=== PATIENT | male | born 1945 | race Caucasian/White ===

== ENCOUNTER 2016-12-16 00:36 | Day surgery (SDC) | payer MEDICARE ==
[~2016-12-16] VITALS: Ht 175.3 cm; Wt 91.5 kg
[2016-12-16] VITALS (18 sets, daily range): BP systolic 93–130; BP diastolic 51–77; PULSE 58–78; RESP 12–20; O2SAT 95–98
[~2016-12-16 00:36] MED LIST: ALBU8.5H2 INHALATION; ASCO500C6 PO; CHOL10008 PO; CYAN1TAB42 PO; DABI150C PO; DILT180C83 PO; DOXA2TAB52 PO; FLUT12AE8 IH; LOSA1TAB69 PO; MELA1TAB9 PO; MONT10TA23 PO; MULT1CAP33 PO; OMEG-38 PO; TADA20TA PO; VITA400C19 PO
[2016-12-16] MEDS ORDERED: Ondansetron 2 mg/mL 2 mL Inj ONE (00:37)
[2016-12-16] MEDS ORDERED: Protamine Sulfate 10 mg/mL 5 mL Inj ONE ×2 (00:37→11:58)
[2016-12-16] MEDS ORDERED: Rocuronium 10 mg/mL 5 mL Inj ONE (00:37)
[2016-12-16] MEDS ORDERED: Phenylephrine/NS 100 mCg/mL 10 mL Syringe IVPUSH ONE (00:37)
[2016-12-16] MEDS ORDERED: MetoCLOpramide 5 mg/mL 2 mL Inj ONE (00:37)
[2016-12-16] MEDS ORDERED: Dexamethasone 4 mg/mL Inj ONE (00:37)
[2016-12-16] MEDS ORDERED: Ketamine 10 mg/mL 20 mL Inj ONE (00:37)
[2016-12-16] MEDS ORDERED: Propofol 10,000 mCg/mL 20 mL Inj ONE (00:37)
[2016-12-16] MEDS ORDERED: fentaNYL-PF 50 mCg/mL 2 mL Inj IVPUSH PRN ×2 (06:00→09:50)
[2016-12-16] MEDS ORDERED: Benzoc-Butamben-Tetraca Spray 20 Gm Spray TOPICAL ONE (06:00)
[2016-12-16] MEDS ORDERED: Heparin 1,000 Unit/mL 10 mL Inj ONE ×2 (07:41→07:57)
[2016-12-16] MEDS ORDERED: Heparin 10,000 Unit/1,000 mL NS Premix IV ONE (07:41)
[2016-12-16] MEDS ORDERED: Heparin 25,000 Unit/500 mL 0.45% NS Premix IV ONE (07:42)
[2016-12-16] MEDS ORDERED: 0.9% Sodium Chloride 5,000 ML ONE (07:43)
[2016-12-16] MEDS ORDERED: Heparin 1,000 Units/500 mL NS Premix IV ONE (07:48)
[2016-12-16 07:53] LABS: BASOPHILS % (AUTO) 0.3 % (0-3); EOSINOPHILS % (AUTO) 6.1 % (0-5); MONOCYTES % (AUTO) 12.8 % (4-12); Mean Corpuscular Hemoglobin 32.5 pg (27.0-35.0); Mean Corpuscular Volume 97.3 fL (81-100); Platelet Count 210 bil/L (150-400)
[2016-12-16 08:08] LABS: INR 1.03 ratio
--- NOTE | 2016-12-16 08:12 | NUR ---
Admitted today for an elective atrial ablation today by Dr Serrato. Admit Rhythm is Atrial fib - 60's. Patient is here with his , "Serafin" as support.
--- NOTE | 2016-12-16 08:55 | PCM.HPANE ---
Patient Data Surgeon Admitting Provider: Attending Provider:Chad Serrato MD Primary Care Physician:King Mueller MD Other Provider:Leonora Colungaingham Anesthesia Reason for Visit Paroxysmal Atrial Fibrillation Ht/WT & BMI Height (Feet): 5 Height (Inches): 9.00 Weight (Kilograms): 87.700 Body Mass Index 28.64 Allergies Coded Allergies: levofloxacin (Verified Allergy, Severe, Rash, 12/16/16) Beta-Adrenergic Agents (Verified Allergy, Unknown, 12/16/16) HX of Asthma Past Anesthesia History Anesthesia History: Denies:: Anesthesia Reactions Diabetes History Hx Diabetes?: No MRSA MRSA: No Medications Hypertension Medication: Yes Home Meds Incl Beta Viridiana: No Reported Medications Vitamin E (Dl,Tocopheryl Acet) (Vitamin E)400 Unit [id number] Unit PO 12/15/16 Cholecalciferol (Vitamin D3) (Vitamin D3)1,000 Unit Tab.chew1,000 Unit PO 12/15/16 Ascorbic Acid (Vitamin C)500 Mg Capsule.er500 Mg PO 12/15/16 Cyanocobalamin/Folic Acid (Vitamin T72-Iczyn Acid Tablet)1 Each Tablet1 Each PO 12/15/16 Albuterol HFA (Proair HFA)8.5 Gm Hfa.aer.ad2 Puffs INHALATION Q4H #1 INHALER 12/15/16 Dabigatran Etexilate Mesylate (Pradaxa)150 Mg Lerdjaz855 Mg PO BID 30 Days 12/15/16 Multivitamin (Multivitamins)1 Each Capsule1 Each PO 12/15/16 Melatonin 1 Mg TabletUnknown Dose PO 12/15/16 Montelukast 10 Mg Hdmrlq25 Mg PO HS Ref 0 12/15/16 Losartan/HCTZ 50-12.5 mg 1 Each Tablet1 Tablet PO DAILY Ref 0 12/15/16 Fluticasone Propionate (Flovent HFA 110 mcg)12 Gm Aer.w.adap1 Puff IH BID #12 GM Ref 0 12/15/16 [place]-3/Dha/Epa/Fish Oil (Fish Oil 1,000 mg Softgel)1 Each Capsule1 Each PO 12/15/16 Doxazosin (Cardura)2 Mg Tablet2 Mg PO BID Ref 0 12/15/16 Diltiazem ER 180 Mg Cap.er.06c342 Mg PO DAILY Ref 0 12/15/16 Tadalafil (Cialis)20 Mg Flptgb45 Mg PO PRN Ref 0 As directed by physician. 12/15/16 History History of ENT Problems?: No HEENT History: Positive for:: Cataracts (both eyes) Sinus Problem (Recurrent - sinus - Right ear - mastoiditis - surgical repair) Denies:: Abnormal Airway Difficult Intubation Dysphagia Glaucoma Hearing Problem TMJ Denture Type: None Teeth Condition: Within Normal Limits Hx of Heart Problems?: Yes Cardiovascular History: Positive for:: Cardiac Surgery (Ablation for AF - aortic stenosis) Heart Murmur Irregular Heartbeat Denies:: Chest Pain Congestive Heart Failure Edema Hypertension Peripheral Vascular Hx of Respiratory Problem?: Yes Respiratory History: Positive for:: Asthma Dyspnea (with hills and exertion) Pneumonia (15 years ago - ER visit - ) Denies:: Chest Surgery Tuberculosis Hx Neurologic Problems?: No Hx of GI Problems?: No Hx of Problems?: No Hx Musculoskeletal Problems?: No Hx of Psycho/Social Problems?: No Hx Surgeries?: Yes (Ablation -Total knees - Right mastoiditis debridement) Hx Any Other Health Problems?: Yes Other History: Positive for:: Hospitalization Denies:: Cancer Thyroid Disease History Blood Transfusions: Positive for:: Accept Blood Products? Blood Transfusions Denies:: Blood Transfuse Reaction Hx Diabetes: No Hx Alcohol Use: YesAlcoholic Drinks Per Day: wine 1-2 glasses each eveningHx Substance Use: No Stop/Bang Treated for Sleep Apnea?: No Do You Have a CPAP Machine?: No TONY Risk Assessment: Low Risk, <3 Yes Risk Assessment Category Category 1A: Patient has history of documented sleep apnea, and HAS NOT received any narcotic, sedative or anesthesia administration during this stay. Category 1B: Patient has history of documented sleep apnea, and HAS received any narcotic , sedative or anesthesia administration during this stay Category 2: Patient has SUSPECTED Obstructive Sleep Apnea, and HAS received any narcotic , sedative or anesthesia administration during this stay. Category 3: Patient has SUSPECTED Obstructive Sleep Apnea and HAS NOT received narcotic, sedative or anesthesia administration during this stay. Category 4: Outpatient in Procedural Areas with known sleep apnea or who screen positive for High Risk via the STOP/BANG questionnaire. Exam Exam Vital Signs Vital Signs Date Time Temp Pulse Resp B/P Pulse Ox O2 Delivery O2 Flow Rate FiO2 12/16/16 07:44 36.8 68 18 130/56 96 Room Air General Appearance: Oriented X3 HEENT/AIRWAY: MP 2 Lungs: Normal Air Movement Heart: Other Meds/Labs/Diagnostics Labs Test 12/16/16 07:00 12/16/16 07:30 White Blood Count 6.5th/mm3 (3.8-10.1) Red Blood Count 4.40mil/mm3 (4.40-5.80) Hemoglobin 14.3g/dL (13.8-17.2) Hematocrit 42.8% (41.0-50.0) Mean Corpuscular Volume 97.3fL (81-100) Mean Corpuscular Hemoglobin 32.5pg (27.0-35.0) Mean Corpuscular Hemoglobin Concent 33.4% (32.0-37.0) Red Cell Distribution Width 13.5% (12.3-15.4) Platelet Count 210bil/L (150-400) Neutrophils (%) (Auto) 58.0% (40-74) Lymphocytes (%) (Auto) 22.6% (14-46) Monocytes (%) (Auto) 12.8% (4-12) Eosinophils (%) (Auto) 6.1% (0-5) Basophils (%) (Auto) 0.3% (0-3) Prothrombin Time 11.0sec (8.1-12.5) Prothromb Time International Ratio 1.03ratio Sodium Level 140mEq/L (134-144) Potassium Level 4.4mEq/L (3.5-5.2) Chloride Level 104mEq/L (97-108) Carbon Dioxide Level 23mmol/L (18-29) Blood Urea Nitrogen 34mg/dL (8-27) Creatinine 1.17mg/dL (0.76-1.27) Estimat Glomerular Filtration Rate 65mL/min (>59) Glucose Level 109mg/dL (60-99) Calcium Level 9.3mg/dL (8.5-10.1) Plan Impression Patient chart reviewed, patient interviewed and anesthestic plan with risks, benefits, and alternatives discussed, and informed consent obtained. ASA Physical Status: ASA3 Severe Disease Anesthetic Support Modalities: Arterial Line Anesthetic Plan: GA Bene/Risks/Altern/Consents: Yes HP Complete Prior to Induction: Yes Jesus Luna MD Dec 16, 2016 08:55
[2016-12-16] MEDS ORDERED: Lactated Ringer's 1,000 ML IV SCH (09:49)
[2016-12-16] MEDS ORDERED: Lactated Ringer's 500 ML IV PRN (09:49)
[2016-12-16] MEDS ORDERED: EPHEDrine Sulfate 50 mg/mL Inj IVPUSH PRN (09:50)
[2016-12-16] MEDS ORDERED: Phenylephrine 10,000 mCg/mL Inj IVPUSH PRN (09:50)
[2016-12-16] MEDS ORDERED: MetoCLOpramide 5 mg/mL 2 mL Inj IVPUSH PRN (09:50)
[2016-12-16] MEDS ORDERED: Dexamethasone 4 mg/mL Inj IVPUSH PRN (09:50)
[2016-12-16] MEDS ORDERED: HYDROmorphone 1 mg/mL Inj IVPUSH PRN (09:50)
[2016-12-16] MEDS ORDERED: Ondansetron 2 mg/mL 2 mL Inj IVPUSH PRN (09:50)
[2016-12-16] MEDS ORDERED: Vancomycin Inj 1,000 MG in IV Premix 1 EACH IV SCH (10:30)
[2016-12-16] MEDS ORDERED: Isoproterenol 200 mCg/50 mL D5W IV IV ONE (11:54)
--- NOTE | 2016-12-16 13:09 | NUR ---
Returned to [facility] following a successful atrial fibrillation ablation by Dr Serrato. Rates 60-58. Venous access sites left and right are soft and non-tender. Noted some emotional tears in the 1st half hour, , "Serafin", states this is the anniversary of his father's . Pt denies any pain, except the Delgado catheter is not comfortable.
[2016-12-16] MEDS ORDERED: Fluticasone 0.05% 15 Spray/2 Gm 16 Gm Nasal Spray NASAL PRN (13:20)
[2016-12-16] MEDS: Dabigatran 150 mg Capsule PO SCH (13:29)
--- NOTE | 2016-12-16 13:40 | NUR ---
Pain complaints from indwelling Delgado catheter. Patient states it alejandre and is feeling, "miserable". Dr Serrato notified, orders received to D/C Delgado catheter. Total out is 300cc - urine is concentrated - no blood noted in urine, or on Delgado catheter when removed from urethra.
--- NOTE | 2016-12-16 14:00 | NUR ---
A-Line removed from Right radial wrist with no complications. Site is soft and non-tender - covered with a clear Telfa.
--- NOTE | 2016-12-16 14:02 | PCM.ANEP1 ---
Post Anesthesia PACU Phase 1 Assessment Vital Signs Vital Signs Date Time Temp Pulse Resp B/P Pulse Ox O2 Delivery O2 Flow Rate FiO2 12/16/16 13:45 58 12 110/66 96 Nasal Cannula 2.00 12/16/16 13:30 58 12 113/63 97 Nasal Cannula 2.00 12/16/16 13:15 58 12 113/60 97 Nasal Cannula 5.00 12/16/16 13:00 36.6 58 12 113/60 97 Nasal Cannula 5.00 12/16/16 12:55 36.6 58 12 99/69 98 Nasal Cannula 5.00 12/16/16 12:50 36.6 60 12 94/59 98 Oxy Mask 10.00 12/16/16 12:45 36.6 63 12 93/51 98 Oxy Mask 10.00 12/16/16 07:44 36.8 68 18 130/56 96 Room Air Anesthetic Administered: GA Level of Alertness: Awake, talking Pain: No Pain Scale Score: 7 Nausea or Vomiting: No CV Function & Hydration Stable: Yes Airway Device: Lungs: Normal Air Movement PACU Phase 2 Assessment Patient Instructions Provided: N/A Jesus Luna MD Dec 16, 2016 14:02
--- NOTE | 2016-12-16 15:30 | NUR ---
Transfer Report called to Gabe Austin RN for room 2004.
--- NOTE | 2016-12-16 15:44 | NUR ---
Right Femoral venous access site track ooze - manual pressure held for 5 minutes. Dressing changed. No Hematoma and no pain.
[2016-12-16] MEDS: Albuterol 2.5 mg/3 mL Inhalation Solution NEB SCH ×2 (16:00→20:51)
--- NOTE | 2016-12-16 17:29 | DRSVH ---
[facility] [address] [address] Echocardiogram Report Name: SMITH HOPKINS LStudy Date: 12/16/2016 Height: 69 in Hospital Exam Location: [facility] Weight: 193 lb Gender: Male BSA: 2.0 m2 : 1945 Age: 71 yrs BP: 126/81 mmHg Reason For Study: AFIB Performed By: Hira Muir Referring Physician: NOE JIMENEZ Interpretation Summary No left atrial mass or thrombus visualized. No thrombus is detected in the left atrial appendage. There is no Doppler evidence for an atrial septal defect. Aortic leaflet mobility is minimally reduced. There is no aortic valve stenosis. No aortic regurgitation is present. The ascending aorta is mild-moderately enlarged. Procedure: Informed consent for Transesophageal Echocardiogram, and use of a contrast agent as needed, was obtained prior to the procedure. The patient was brought to the cardiac catheterization lab in a fasting state. Sedation was managed by anesthesiologist; see anesthesiology notes for details. A multifrequency, multiplane transesopheageal echocardiographic endoscope was inserted and manipulated in the standard fashion to achieve multiplane views. The transesophageal probe was passed without difficulty. A 2D transesophageal echocardiogram with spectral and color flow Doppler was performed. The usual views were obtained; basal, mid-esophageal, transgastric and aortic views. The patient's vital signs, including blood pressure, heart rate, pulse oximetry and cardiac rhythm were monitored throughout the procedure and remained stable. The patient tolerated the procedure well without evidence of orophangeal or esophageal trauma. Comparison is made with the echocardiogram of 10/13/16. The patient was in atrial fibrillation with controlled ventricular rate during the exam. There were no complications. Left Ventricle: The left ventricle is normal in size, wall thickness, and systolic function without any focal wall motion abnormalities. The ejection fraction is estimated to be 55-60%. Right Ventricle: The right ventricle grossly appears normal in size with probable normal systolic function. Atria: No left atrial mass or thrombus visualized. No thrombus is detected in the left atrial appendage. The interatrial septum is intact with no evidence for an atrial septal defect. There is no Doppler evidence for an atrial septal defect. Mitral Valve: The mitral valve is normal. There is trace mitral regurgitation. Aortic Valve: The aortic valve is trileaflet. Leaflet mobility is minimally reduced. There is no aortic valve stenosis. No aortic regurgitation is present. Tricuspid Valve: The tricuspid valve is not well visualized, but is grossly normal. No tricuspid regurgitation. Pulmonic Valve: The pulmonic valve is not well seen, but is grossly normal. There is no pulmonic valvular regurgitation. Great Vessels: The aortic root is normal size. The ascending aorta is mild- moderately enlarged. Pericardium/ Pleura: There is no pericardial effusion. Reading Physician:NOHEMI
--- NOTE | 2016-12-16 17:33 | NUR ---
Transfer/Off Bedrest Pt. was transferred to room [address] [place] [address] from [facility]. Pt. arrived in no apparent distress at about 1600. A&Ox3, on bedrest until 1644. Right groin site C/D/I, soft, non-tender with a 2x2 dry gauze and a bio-occlusive dressing, Pt. denies Pt. Left groin site C/D/I with a bio-occlusive dressing only soft, non-tender and no pain stated by Pt. Pt. off bedrest at 1644 and ambulated to the bathroom with SBA. Pt. denied dizziness and light headedness as well as pain in his left and right groin site. Pt. voided stating no complications and ambulated back to bed independently. Right groin site C/D/I soft, non-tender, no bruising and Pt. denies pain upon palpation. Left groin site had minimal blood drainage, dressing changed to a 2x2 dry gauze and a bio-occlusive dressing. Pt. denies pain upon palpation on left groin site, soft, non-tender, and no bruising noted. Will continue to monitor.
--- NOTE | 2016-12-16 23:20 | PROCED ---
[address] [address] PROCEDURE NOTE PATIENT: SMITH HOPKINS : 1945 MR#: [id number] ADMIT: 12/16/2016 JOB ID: [id number] DATE OF SERVICE: 12/16/2016 PREOPERATIVE DIAGNOSIS(ES): Paroxysmal drug refractory atrial fibrillation status post previous ablation. POSTOPERATIVE DIAGNOSIS(ES): Paroxysmal drug refractory atrial fibrillation status post previous ablation. PROCEDURES PERFORMED: 1. Comprehensive electrophysiology study with left atrial pacing recording via the coronary sinus catheter. 2. Three-dimensional electroanatomic mapping using the CARTO 3 system. 3. Atrial fibrillation ablation with pulmonary vein isolation. 4. Transseptal puncture x2. 5. Intracardiac echocardiography. 6. Barium esophagram. 7. Fluoroscopy. SURGEON: Chad Serrato MD. ASSISTANTS: Robert Lebron. RYANNE Johnson. ANESTHESIA: General endotracheal anesthesia was undertaken for this case. INDICATION: The patient is a pleasant 71-year-old man with preserved LV function, mild aortic stenosis and previous atrial fibrillation ablation approximately seven years ago who comes in with recurrent symptomatic drug refractory paroxysmal atrial fibrillation. After discussion of risks and benefits of catheter-based mapping and ablation, he opted to proceed. PROCEDURAL DESCRIPTION: Following informed signed consent, the patient was taken to the EP laboratory in a fasting nonsedated state where he was prepped and draped in usual sterile fashion. He underwent a preprocedural transesophageal echocardiogram by Dr. Flor confirming lack of intracardiac thrombus. Please see separate dictated report for the details of that procedure. The bilateral groins were then infiltrated with 1% lidocaine. Then, using modified Seldinger technique, two 8-Iceland[place] sheaths were inserted into the right femoral vein. A 7 and 10-Icelandic sheath were inserted into the left femoral vein. Under fluoroscopic guidance, a deflectable decapolar catheter was advanced to the coronary sinus where the most proximal bipoles were at the os of the sinus. An intracardiac echocardiography probe was advanced to the RV outflow tract and used to visualize the pericardial space. No effusion was noted. The ICE probe was pulled back into the right atrium until we were able to visualize the interatrial septum and assistance of transseptal puncture. Two transseptal punctures were performed in an identical fashion, each with the short 8-Icelandic sheaths in the right groin. They were exchanged over a long wire for a Ash sheath dilator and [place] needle. The entire system was used to engage the interatrial septum. Then, under pressure, fluoroscopic image of the septum was traversed twice to deploy the two Ash sheaths into the left atrium. The patient was heparinized for a goal ACT of 350-400 seconds. During this time, we were in the left atrium. Following the first and preceding the second transseptal puncture. A re-survey with showed no evidence of effusion. Through the two Ash sheaths an F curve irrigated tip SmartToBenaissance ablation catheter was passed, as was a 20 pole PentaRay catheter. A three-dimensional electroanatomic map of the left atrium and four pulmonary veins was created using the [place] 3 system. Given his previous ablation, we did create a voltage map and were careful in further ablation. Ultimately, it was noted at the left upper and right lower pulmonary veins were reconnected. I targeted high voltage fractionated electrogram along the ostia of these veins, ultimately achieving entrance and exit block. We confirmed entrance and exit block in the right upper and left lower pulmonary vein without need for further ablation. The patient was placed on isoproterenol to a max dose of 10 mcg/minute and no atrial fibrillation was induced. We then left the left atrium, reversed the patient's heparin with protamine, and confirming lack of pericardial effusion. Once the heparin had been reversed, all catheters and sheaths were removed. Manual pressure was held for hemostasis. The patient was transferred to the [facility] for monitoring and bedrest. COMPLICATIONS: None. ESTIMATED BLOOD LOSS: 10 cc. FINDINGS: 1. Baseline rhythm is sinus with an RR interval of 588 msec, UT 157 msec, QRS 67 msec, QT 382 msec. 2. Intracardiac intervals: 65 msec, HV msec. 3. Retrograde conduction: Concentric atrial activation. VA dissociation at 420 msec. 4. Pulmonary vein isolation with entry and exit block in all four pulmonary veins as described above. IMPRESSION: Successful pulmonary vein isolation procedure for paroxysmal drug refractory atrial fibrillation. PLAN: 1. Bed rest x4 hours. 2. Resume anticoagulation immediately with Pradaxa. 3. Continue diltiazem and add flecainide 50 mg twice daily for the next three months. 4. EKG in one week. 5. Protonix 40 mg p.o. daily for one month. 6. Follow up with Maikel in 3-4 weeks and with me in three months. ATTENDING STATEMENT: Chad Serrato M.D., electrophysiology attending, was present and supervised/performed all aspects of this procedure.
[2016-12-17 03:13] VITALS: BP 131/65; PULSE 75; RESP 18; O2SAT 95
[2016-12-17 03:44] VITALS: PULSE 85
--- NOTE | 2016-12-17 04:42 | NUR ---
Tele / VS / Groin Sites No c/o chest pain, Tele SR with PVCs with HR 70s, Per Engine Repairer. VS stable and afebrile. No c/o SOB, RA sats 95-96%. Bilateral groin sites, CDI. No hematoma or active signs of bleeding. Pedal pulses palpable, right side slightly weaker than the left. Groin sites non-tender to palpation. Up with SBA, gait steady.
[2016-12-17] MEDS ORDERED: Pantoprazole 40 mg ER24 Tablet PO SCH (06:30)
[2016-12-17] MEDS: Albuterol 2.5 mg/3 mL Inhalation Solution NEB SCH (07:30)
[2016-12-17 08:00] VITALS: PULSE 76
--- NOTE | 2016-12-17 08:09 | PCM.DIMED ---
Discharge Instructions Date of Service Dec 17, 2016 Dates of Hospitalization Discharge Diagnosis Discharge Diagnosis Paroxysmal Atrial fibrillation Mild Aortic Stenosis Frequent PVCs Diet Discharge Diet: Heart Healthy Activity Discharge Activity: Other (To prevent bleeding, do not lift, push or pull more than 10 lbs for 5 days. To prevent infection, do not sit in a bath tub, hot tub or pool for 5 days.) Call your provider Call your provider for: Fever or Chills, Bleeding, Excessive diarrhea, Weakness (unilateral) Patient Instructions Mid-level Provider (F9): Maikel Montgomery PA-C Follow-up with Mid-level in: 5 weeks (Appt. on January 18 at 1:20 pm (arrival time ) at [facility] Cardiology in [place].) Maikel Montgomery PA-C Dec 17, 2016 08:09
[2016-12-17] MEDS ORDERED: FLC50T PO (08:21)
[2016-12-17] MEDS ORDERED: PANT40TA3 PO (08:21)
[2016-12-17] MEDS ORDERED: Diltiazem CD 180 mg ER24 Capsule PO SCH (08:30)
[2016-12-17] MEDS ORDERED: Omega-3 Fatty Acids 1,000 mg Capsule PO SCH (08:30)
[2016-12-17] MEDS ORDERED: Ascorbic Acid 500 mg Tablet PO SCH (08:30)
[2016-12-17] MEDS ORDERED: Multivit-Miner-Folic Acid-Iron Tablet PO SCH (08:30)
[2016-12-17 08:47] VITALS: BP 147/73; PULSE 61; RESP 16; O2SAT 98
--- NOTE | 2016-12-17 09:24 | DIS ---
[address] [address] DISCHARGE SUMMARY PATIENT: SMITH HOPKINS : 1945 MR#: [id number] ADMIT: 12/16/2016 JOB ID: [id number] DIS: REASON FOR ADMISSION: Atrial fibrillation ablation procedure. CHIEF COMPLAINT: Episodic palpitations with associated fatigue and chest pressure discomfort. BRIEF HISTORY: The patient is a pleasant 71-year-old man with a history of mild aortic stenosis and history of rheumatic disease as a child. He has also had drug-refractory paroxysmal atrial fibrillation, for which he underwent an ablation procedure in 2009, down in [place]. Over the past three or four months he has had frequent recurrence of the arrhythmia, and he describes palpitations associated with chest discomfort, as well as fatigue. On two occasions he has gone to the ED and was ultimately started on Cardizem and was anticoagulated. He wished to have a repeat atrial fibrillation ablation procedure and was admitted for that purpose. COURSE IN HOSPITAL: The patient was admitted through the [facility] and taken to the cardiac catheterization laboratory, where he was first placed under general anesthesia by the anesthesiologist. He then had a MELL, which showed no evidence of left atrial thrombus. The ablation procedure was then undertaken and completed without incident. Afterward, the right and left femoral venous sheaths were removed, hemostasis was obtained and he was awakened from anesthesia. The patient was transferred back to the [facility] for recovery from sedation and then taken up to the [facility] for overnight observation and telemetry monitoring. He did well overnight, he was quite ambulatory in the morning with walking the hallways without any difficulty and no bleeding from the femoral sites. He has been able to urinate after removal of the Delgado catheter. He describes no discomfort in the chest and overall, says he feels better than the usual. He felt pleased to be discharged home. DISPOSITION: The patient was discharged home in good condition with a followup appointment at the [facility] Cardiology office in one month. He was asked to not sit in a hot tub, bathtub, or pool for five days to prevent infection, and was asked not to lift, push, or pull more than 10 pounds to prevent infection. He will follow his usual heart healthy diet and take medications as prescribed. MEDICATIONS: 1. Flecainide [address]i.d. 2. Pantoprazole DR 40 mg once daily for 30 days only. 3. Albuterol inhaler 2 puffs q.4 h. p.r.n. 4. Ascorbic acid 500 mg daily. 5. Vitamin D3, 1000 units daily. 6. Vitamin B12 with folic acid 1 tablet daily. 7. Pradaxa 150 mg b.i.d. 8. Diltiazem ER 180 mg daily. 9. Doxazosin 2 mg b.i.d. 10. Flovent HFA 110 mcg 1 puff b.i.d. 11. Losartan/hydrochlorothiazide 50/12.5 mg 1 daily. 12. Melatonin 1 mg q.h.s. 13. Montelukast 10 mg q.h.s. 14. Multivitamin 1 daily. 15. [place]-3 fish oil 1 capsule daily. 16. Cialis 20 mg p.r.n. 17. Vitamin E 400 units daily. FINAL DIAGNOSES: 1. Paroxysmal atrial fibrillation. 2. Mild aortic stenosis. 3. Frequent premature ventricular contractions.
[2016-12-17] MEDS: Dabigatran 150 mg Capsule PO SCH (09:52)
--- NOTE | 2016-12-17 11:47 | NUR ---
Discharge Pt left the facility around 1135 with at the bedside. Pt received discharge packet with information and teaching as well. Pt and understood all instructions. Prescriptions were confirmed to be sent electronically to the pharmacy. IVs were removed. Telemetry leads were removed. Pt left with all personal belongings.
== END 2016-12-17 11:35 | disposition home or self-care (01) ==
LOC: SOUO 00:36 → EDUNIT# 09:00 → PCC 15:53 → SOUO 12-17 11:35
PROVIDERS: ATTEND Internal Medicine Cardiovascular Disease
DX: I48.0 Paroxysmal atrial fibrillation (principal); I49.3 Ventricular premature depolarization; I35.0 Nonrheumatic aortic (valve) stenosis; Z98.890 Other specified postprocedural states; J45.909 Unspecified asthma, uncomplicated; I10 Essential (primary) hypertension; Z86.718 Personal history of other venous thrombosis and embolism; Z87.891 Personal history of nicotine dependence; Z79.01 Long term (current) use of anticoagulants
CPT/HCPCS: 36415; 80048; 85025; 85610; 93005; 93613; 93623; 93656; 93662; 94664; C1730; C1732; C1759; C1769; C1894; C8925; J1100; J1644; J2060; J2250; J2270; J2370; J2405; J2720; J2765; J7030